=== PATIENT | female | born 1980 | race Caucasian/White ===

== ENCOUNTER 2016-12-11 20:19 | Emergency (ER) | payer OTHER ==
[~2016-12-11] VITALS: Ht 167.6 cm; Wt 77.2 kg
[2016-12-11] MEDS ORDERED: MELO15TA4 PO (20:36)
[2016-12-11] MEDS ORDERED: ALPRAZolam 0.25 MG TAB PO ONE (21:45)
[2016-12-11] MEDS ORDERED: XANA0.25 PO (21:52)
[2016-12-11 22:00] VITALS: BP 123/88
== END 2016-12-11 22:02 | disposition home or self-care (01) ==
LOC: M ED 20:19
DX: F41.9 Anxiety disorder, unspecified (principal); M54.2 Cervicalgia; Z87.891 Personal history of nicotine dependence; Z79.899 Other long term (current) drug therapy; Z88.0 Allergy status to penicillin

== ENCOUNTER 2016-12-25 14:51 | Emergency (ER) | payer OTHER ==
[~2016-12-25] VITALS: Ht 167.6 cm; Wt 77.3 kg
[2016-12-25 14:51] VITALS: BP 128/85
[~2016-12-25 14:51] MED LIST: MELO15TA4 PO; XANA0.25 PO
[2016-12-25] MEDS ORDERED: TYLE325T5 PO (15:02)
[2016-12-25] MEDS ORDERED: CYCL5TAB PO (15:02)
[2016-12-25] MEDS ORDERED: MEDR4PAK PO (15:59)
== END 2016-12-25 16:10 | disposition home or self-care (01) ==
LOC: M ED 14:51
DX: M54.2 Cervicalgia (principal); Z79.899 Other long term (current) drug therapy; Z88.0 Allergy status to penicillin

== ENCOUNTER → 2017-05-29 | Outpatient (REF) | payer OTHER | LOC: M SFHCLERA 11:38 | DX: J02.9 Acute pharyngitis, unspecified (principal) ==